=== PATIENT | female | born 2000 | race Caucasian/White ===

== ENCOUNTER 2023-12-14 23:46 | Emergency (ER) | payer MEDICAID ==
[~2023-12-14] VITALS: Ht 165.1 cm; Wt 95.3 kg
[2023-12-15] MEDS ORDERED: WEGOVY0.5 MG/0.5 (00:14)
[2023-12-15] MEDS ORDERED: SODIUM CHLORIDE 0.9% 1,000 ML IV ONE (00:30)
[2023-12-15] MEDS ORDERED: MORPHINE SULFATE 4 MG/ML VIAL IV ONE (00:30)
[2023-12-15] MEDS ORDERED: METOCLOPRAMIDE HCL 10 MG/2 ML SDV IV ONE (00:30)
[2023-12-15 00:31] LABS: BASOPHILS 0.6 % (0-2); EOSINOPHILS 0.8 % (0-6); HEMOGLOBIN 14.7 g/dL (12.0-18.0); LYMPHOCYTES 29.4 % (24-44); MCH 28.7 (27-36); MCHC 35.1 g/dl (30-36); MCV 81.7 fl (81-99); MONOCYTES 17.3 % (0-12); NEUTROPHILS 51.9 % (39-80); PLATELET COUNT 193 K/uL (140-440); RBC 5.14 M/ul (4.3-5.7); RDW 12.5 (10.5-15.0)
[2023-12-15 01:03] LABS: ALBUMIN 3.9 g/dL (3.4-5.0); ALBUMIN/GLOBULIN RATIO 1.15 (1.1-2.4); BILIRUBIN, TOTAL 0.7 ng/dL (0.2-1.0); BUN/CREATININE RATIO 12.64 (6.0-28.6); CALCIUM 9.6 mg/dL (8.5-10.1); CREATININE, SERUM 0.87 mg/dL (0.55-1.02); PROTEIN, TOTAL 7.3 g/dL (6.4-8.2)
[2023-12-15] MEDS ORDERED: PROMETHEGAN25 MG PR (01:12)
[2023-12-15] MEDS ORDERED: ONDANSETRON ODT8 MG PO (01:12)
[2023-12-15] MEDS ORDERED: PROMETHAZINE HCL 25 MG SUPP. HOME.PACK PR ONE (01:15)
[2023-12-15] MEDS ORDERED: ONDANSETRON 4 MG HOME.PACK SL ONE (01:15)
[2023-12-15 01:28] VITALS: BP 111/69
[2023-12-15] MEDS ORDERED: droPERidol 5 MG/2 ML VIAL IV ONE (01:30)
== END 2023-12-15 01:28 | disposition home or self-care (01) ==
LOC: ED 23:46
PROVIDERS: Family Medicine
DX: K52.9 Noninfective gastroenteritis and colitis, unspecified (principal); Z79.899 Other long term (current) drug therapy
CPT/HCPCS: 36415; 74018; 80053; 83690; 84703; 85025; 96374; 96375; 99284-25; A9270; J1790; J2270; J2765; J7030